=== PATIENT | female | born 1985 | race Caucasian/White ===

== ENCOUNTER 2017-12-25 14:58 | Inpatient (IN) | payer MEDICAID, OTHER ==
[~2017-12-25] VITALS: Ht 162.6 cm; Wt 49.7 kg
[~2017-12-25 14:58] MED LIST: ACYC-114; IRON15TA3 PO; LEVO500T47 PO; METO10TA82 PO; ONDA4TAB10 PO; ONDA4TAB7; PREN1TAB60 PO; PROM25AM6; PROM25SU35
[2017-12-25] MEDS ORDERED: ONDANSETRON 2MG/ML, 2ML IVPush ONE (15:30)
[2017-12-25] MEDS ORDERED: SODIUM CHLORIDE FLUSH 10ML SYR IVF ONE (15:30)
[2017-12-25] MEDS ORDERED: FAMOTIDINE 20 MG/2 ML IVP ONE (15:30)
[2017-12-25] MEDS ORDERED: SODIUM CHLORIDE 0.9% 1,000ML IVBOLUS ONE (15:30)
[2017-12-25] MEDS ORDERED: METOCLOPRAMIDE 5 MG/ML, 2ML IVPush ONE (15:30)
[2017-12-25 15:38] LABS: BASOPHILS # (AUTO) 0.01 x10^3/uL (0-0.1); BASOPHILS % (AUTO) 0 % (0-1); EOSINOPHILS # (AUTO) 0.03 x10^3/uL (0-0.4); EOSINOPHILS % (AUTO) 0 % (1-7); LYMPHOCYTES # (AUTO) 1.36 x10^3/uL (1-3.4); LYMPHOCYTES % (AUTO) 8 % (22-44); MD NO; MEAN CORPUSCULAR HEMOGLOBIN 31.9 pg (27.0-34.8); MEAN CORPUSCULAR VOLUME 93.6 fL (80-100); MEAN PLATELET VOLUME 8.2 fL (7.4-10.4); MONOCYTES # (AUTO) 0.54 x10^3/uL (0.2-0.8); MONOCYTES % (AUTO) 3 % (2-9); NEUTROPHILS % (AUTO) 89 % (42-75); PLATELET COUNT 414 x10^3/uL (130-400); RED BLOOD COUNT 4.23 x10^6/uL (3.82-5.3); RED CELL DISTRIBUTION WIDTH 13.2 % (9.6-15.2)
[2017-12-25 15:46] LABS: ALANINE AMINOTRANSFERASE 19 U/L (12-78); ALBUMIN 4.2 g/dL (3.4-5.0); ANION GAP 15 mmol/L (5-15); CALCIUM 9.1 mg/dL (8.5-10.1); CHLORIDE 104 mmol/L (98-107); CREATININE 0.85 mg/dL (0.55-1.02)
[2017-12-25 15:50] LABS: ALKALINE PHOSPHATASE 78 U/L (45-117); TOTAL PROTEIN 7.4 g/dL (6.4-8.2)
[2017-12-25] MEDS ORDERED: FAMOTIDINE 20 MG/2 ML ONE (16:03)
[2017-12-25] MEDS ORDERED: METOCLOPRAMIDE 5 MG/ML, 2ML ONE (16:03)
[2017-12-25] MEDS ORDERED: ONDANSETRON ODT 4 MG ONE (16:03)
[2017-12-25] MEDS ORDERED: POTASSIUM CHLORIDE 40 MEQ in SODIUM CHLORIDE 0.9% 1,000 ML IV ONE (16:23)
[2017-12-25] MEDS ORDERED: LORazepam 2 MG/ML, 1ML ONE (16:29)
[2017-12-25] MEDS ORDERED: LORazepam 2 MG/ML, 1ML IVPush ONE (16:30)
[2017-12-25] MEDS ORDERED: MAGNESIUM SULFATE IV ONE (16:30)
[2017-12-25] MEDS ORDERED: SODIUM CHLORIDE 0.9% IV ONE (16:30)
[2017-12-25] MEDS ORDERED: SODIUM CHLORIDE 0.9% 1,000 ML IV ONE (16:57)
[2017-12-25] MEDS ORDERED: SODIUM CHLORIDE FLUSH 10ML SYR IVF PRN (17:00)
[2017-12-25] MEDS ORDERED: MAGNESIUM SULFATE 1 GM in SODIUM CHLORIDE 0.9% 48 ML IV ONE (17:00)
[2017-12-25] MEDS ORDERED: SERT100T PO (17:08)
[2017-12-25] MEDS ORDERED: PROM12.55 PO (17:09)
[2017-12-25] MEDS ORDERED: NS + 40MEQ KCL 0 ML IV ONE (17:14)
[2017-12-25] MEDS ORDERED: BISACODYL 10 MG SUPP PR PRN (18:00)
[2017-12-25] MEDS ORDERED: hydrALAzine 20 MG/ML, 1ML IVPush PRN (18:00)
[2017-12-25] MEDS ORDERED: ACETAMINOPHEN 325 MG TABLET PO PRN (18:00)
[2017-12-25] MEDS ORDERED: POLYETHYLENE GLYCOL 17 GM PACKET PO PRN (18:00)
[2017-12-25] MEDS ORDERED: POTASSIUM CHLORIDE 40 MEQ in SODIUM CHLORIDE 0.9% 500 ML IV ONE (18:00)
[2017-12-25] MEDS ORDERED: ONDANSETRON 2MG/ML, 2ML IVPush PRN (18:00)
[2017-12-25] MEDS ORDERED: MAGNESIUM SULFATE 1 GM in SODIUM CHLORIDE 0.9% 50 ML IV ONE (18:30)
[2017-12-25] MEDS: HEPARIN 5,000 UNITS/ML, 1ML SQ SCH (18:41)
[2017-12-25 18:42] LABS: HEMOGLOBIN A1C 5.3 % (4.2-6.3)
[2017-12-25 18:51] LABS: FREE T4 (FREE THYROXINE) 1.78 ng/dL (0.76-1.46); THYROID STIMULATING HORMONE 1.09 mIU/L (0.358-3.740)
[2017-12-25] MEDS: ONDANSETRON ODT 4 MG PO PRN (19:39)
[2017-12-25] MEDS ORDERED: MORPHINE SULFATE 4 MG/ML, 1ML ONE ×2 (20:12→23:28)
[2017-12-25 20:21] VITALS: BP 97/55
[2017-12-25] MEDS: morphine SULFATE 10 MG/ML, 1ML IVPush PRN ×2 (20:21→23:34)
[2017-12-25] MEDS ORDERED: SODIUM PHOSPHATE 30 MMOL in SODIUM CHLORIDE 0.9% 500 ML IV ONE (20:30)
[2017-12-26 00:11] LABS: MICROSCOPIC NOT IND
[2017-12-26 00:16] LABS: CULTURE INDICATED? NO
[2017-12-26 04:00] VITALS: BP 90/50
[2017-12-26 04:21] VITALS: BP 90/50
[2017-12-26] MEDS ORDERED: MORPHINE SULFATE 4 MG/ML, 1ML ONE ×7 (04:25→23:57)
[2017-12-26] MEDS: ONDANSETRON ODT 4 MG PO PRN ×2 (04:28→10:07)
[2017-12-26] MEDS: HEPARIN 5,000 UNITS/ML, 1ML SQ SCH ×3 (04:28→19:57)
[2017-12-26] MEDS: morphine SULFATE 10 MG/ML, 1ML IVPush PRN ×6 (04:29→19:56)
[2017-12-26 05:19] LABS: ALANINE AMINOTRANSFERASE 15 U/L (12-78); ANION GAP 10 mmol/L (5-15); CALCIUM 7.8 mg/dL (8.5-10.1); CHLORIDE 109 mmol/L (98-107); CREATININE 0.55 mg/dL (0.55-1.02)
[2017-12-26 05:21] LABS: ALKALINE PHOSPHATASE 58 U/L (45-117); BILIRUBIN,TOTAL 0.7 mg/dL (0.2-1.0); CHOLESTEROL, TOTAL 81 mg/dL (140-239); HDL CHOL % 49 % (28-40); HDL CHOLESTEROL (DIRECT) 40 mg/dL (40-60); LDL CHOLESTEROL,CALCULATED 30 mg/dL (54-169); LDL/HDL RATIO 0.8 (0.5-3.0); TOTAL PROTEIN 5.4 g/dL (6.4-8.2); TRIGLYCERIDES 57 mg/dL (50-200); VLDL CHOLESTEROL 11 mg/dL (0-25)
[2017-12-26 05:24] LABS: BASOPHILS # (AUTO) 0.04 x10^3/uL (0-0.1); BASOPHILS % (AUTO) 0 % (0-1); EOSINOPHILS # (AUTO) 0.16 x10^3/uL (0-0.4); EOSINOPHILS % (AUTO) 2 % (1-7); LYMPHOCYTES # (AUTO) 3.93 x10^3/uL (1-3.4); LYMPHOCYTES % (AUTO) 48 % (22-44); MD NO; MEAN CORPUSCULAR HEMOGLOBIN 32.1 pg (27.0-34.8); MEAN CORPUSCULAR HGB CONC 34.1 g/dL (32.4-35.8); MEAN PLATELET VOLUME 7.9 fL (7.4-10.4); MONOCYTES # (AUTO) 0.51 x10^3/uL (0.2-0.8); MONOCYTES % (AUTO) 6 % (2-9); NEUTROPHILS # (AUTO) 3.54 x10^3/uL (1.8-6.8); NEUTROPHILS % (AUTO) 43 % (42-75); PLATELET COUNT 288 x10^3/uL (130-400); RED BLOOD COUNT 3.28 x10^6/uL (3.82-5.3); RED CELL DISTRIBUTION WIDTH 13.6 % (9.6-15.2)
[2017-12-26 06:58] VITALS: BP 97/53
[2017-12-26] MEDS: POTASSIUM CHLORIDE 40 MEQ in D5%-0.9% NACL 1,000 ML IV SCH ×2 (07:04→19:00)
[2017-12-26] MEDS: SERTRALINE 100MG TABLET PO SCH (09:48)
[2017-12-26] MEDS: SENNA/DOCUSATE TABLET PO SCH (09:48)
[2017-12-26] MEDS: PROMETHAZINE 25 MG/ML, 1ML IM PRN ×3 (12:36→19:57)
[2017-12-26 12:46] VITALS: BP 159/88
[2017-12-26 20:35] VITALS: BP 101/59
[2017-12-26 23:30] VITALS: BP 100/56
[2017-12-27] MEDS: morphine SULFATE 10 MG/ML, 1ML IVPush PRN ×6 (00:05→21:35)
[2017-12-27] MEDS: PROMETHAZINE 25 MG/ML, 1ML IM PRN ×3 (00:05→10:07)
[2017-12-27 00:35] VITALS: BP 107/63
[2017-12-27] MEDS ORDERED: D5%-0.45% NACL 1,000 ML IV SCH (01:00)
[2017-12-27 05:02] LABS: BASOPHILS # (AUTO) 0.04 x10^3/uL (0-0.1); BASOPHILS % (AUTO) 1 % (0-1); EOSINOPHILS # (AUTO) 0.15 x10^3/uL (0-0.4); EOSINOPHILS % (AUTO) 2 % (1-7); LYMPHOCYTES # (AUTO) 3.37 x10^3/uL (1-3.4); LYMPHOCYTES % (AUTO) 43 % (22-44); MD NO; MEAN CORPUSCULAR HEMOGLOBIN 32.4 pg (27.0-34.8); MEAN CORPUSCULAR HGB CONC 34.2 g/dL (32.4-35.8); MEAN CORPUSCULAR VOLUME 94.6 fL (80-100); MEAN PLATELET VOLUME 7.9 fL (7.4-10.4); MONOCYTES # (AUTO) 0.57 x10^3/uL (0.2-0.8); MONOCYTES % (AUTO) 7 % (2-9); NEUTROPHILS # (AUTO) 3.69 x10^3/uL (1.8-6.8); NEUTROPHILS % (AUTO) 47 % (42-75); PLATELET COUNT 325 x10^3/uL (130-400); RED BLOOD COUNT 3.58 x10^6/uL (3.82-5.3); RED CELL DISTRIBUTION WIDTH 13.4 % (9.6-15.2)
[2017-12-27 05:04] LABS: ANION GAP 8 mmol/L (5-15); CALCIUM 8.2 mg/dL (8.5-10.1); CHLORIDE 106 mmol/L (98-107); CREATININE 0.56 mg/dL (0.55-1.02)
[2017-12-27] MEDS ORDERED: MORPHINE SULFATE 4 MG/ML, 1ML ONE ×4 (05:39→21:32)
[2017-12-27] MEDS: HEPARIN 5,000 UNITS/ML, 1ML SQ SCH ×3 (05:49→20:43)
[2017-12-27 07:38] VITALS: BP 107/62
[2017-12-27] MEDS: SENNA/DOCUSATE TABLET PO SCH (09:00)
[2017-12-27] MEDS: SERTRALINE 100MG TABLET PO SCH (09:08)
[2017-12-27] MEDS ORDERED: POTASSIUM CHLORIDE 40 MEQ in SODIUM CHLORIDE 0.9% 500 ML IV ONE (10:00)
[2017-12-27] MEDS: ONDANSETRON ODT 4 MG PO PRN (10:39)
[2017-12-27] MEDS: PANTOPRAZOLE 40 MG IV IVPush SCH (11:48)
[2017-12-27 14:16] VITALS: BP 102/62
[2017-12-27] MEDS: POTASSIUM CHLORIDE 40 MEQ in D5%-0.9% NACL 1,000 ML IV SCH (15:11)
[2017-12-27 20:55] VITALS: BP 107/61
[2017-12-28] MEDS ORDERED: MORPHINE SULFATE 4 MG/ML, 1ML ONE ×4 (00:57→14:57)
[2017-12-28] MEDS: POTASSIUM CHLORIDE 40 MEQ in D5%-0.9% NACL 1,000 ML IV SCH ×2 (01:10→11:48)
[2017-12-28] MEDS: morphine SULFATE 10 MG/ML, 1ML IVPush PRN ×6 (01:10→19:42)
[2017-12-28 01:15] VITALS: BP 104/61
[2017-12-28] MEDS: HEPARIN 5,000 UNITS/ML, 1ML SQ SCH ×3 (04:13→19:43)
[2017-12-28] MEDS: SENNA/DOCUSATE TABLET PO SCH (07:39)
[2017-12-28 08:53] VITALS: BP 103/62
[2017-12-28] MEDS: ONDANSETRON ODT 4 MG PO PRN (08:53)
[2017-12-28] MEDS: SERTRALINE 100MG TABLET PO SCH (08:53)
[2017-12-28] MEDS: PANTOPRAZOLE 40 MG IV IVPush SCH (08:54)
[2017-12-28] MEDS: PROMETHAZINE 25 MG/ML, 1ML IM PRN ×2 (10:22→19:41)
[2017-12-28] MEDS ORDERED: POTASSIUM CHLORIDE 40 MEQ in SODIUM CHLORIDE 0.9% 500 ML IV ONE (12:30)
[2017-12-28 13:33] VITALS: BP 104/76
[2017-12-28 20:58] VITALS: BP 111/68
[2017-12-29] MEDS: morphine SULFATE 10 MG/ML, 1ML IVPush PRN ×4 (00:14→15:43)
[2017-12-29 02:58] VITALS: BP 95/54
[2017-12-29] MEDS: HEPARIN 5,000 UNITS/ML, 1ML SQ SCH ×4 (04:00→21:04)
[2017-12-29 06:06] LABS: ANION GAP 8 mmol/L (5-15); CHLORIDE 108 mmol/L (98-107); CREATININE 0.53 mg/dL (0.55-1.02)
[2017-12-29] MEDS: SENNA/DOCUSATE TABLET PO SCH (07:27)
[2017-12-29 08:07] VITALS: BP 102/66
[2017-12-29] MEDS ORDERED: MORPHINE SULFATE 4 MG/ML, 1ML ONE ×3 (09:43→15:41)
[2017-12-29] MEDS: PANTOPRAZOLE 40 MG IV IVPush SCH (09:55)
[2017-12-29] MEDS: SERTRALINE 100MG TABLET PO SCH (09:55)
[2017-12-29] MEDS: PROMETHAZINE 25 MG/ML, 1ML IM PRN (13:03)
[2017-12-29] MEDS ORDERED: QUETIAPINE 25MG TABLET ONE (13:53)
[2017-12-29] MEDS: QUETIAPINE 25MG TABLET PO PRN (13:57)
[2017-12-29 14:08] VITALS: BP 98/60
[2017-12-29 18:28] LABS: MICROSCOPIC NOT IND
[2017-12-29 18:35] LABS: CULTURE INDICATED? NO
[2017-12-29 20:25] VITALS: BP 100/63
[2017-12-29] MEDS ORDERED: QUETIAPINE 25MG TABLET PO SCH (21:00)
[2017-12-30 00:35] VITALS: BP 93/59
[2017-12-30] MEDS: HEPARIN 5,000 UNITS/ML, 1ML SQ SCH ×4 (04:00→20:00)
[2017-12-30] MEDS: PANTOPRAZOLE 40 MG IV IVPush SCH (08:08)
[2017-12-30] MEDS: SENNA/DOCUSATE TABLET PO SCH (08:09)
[2017-12-30] MEDS: SERTRALINE 100MG TABLET PO SCH (08:09)
[2017-12-30 08:29] VITALS: BP 95/57
[2017-12-30] MEDS: PROMETHAZINE 25 MG/ML, 1ML IM PRN ×3 (09:07→21:10)
[2017-12-30] MEDS: morphine SULFATE 10 MG/ML, 1ML IVPush PRN ×3 (11:02→23:08)
[2017-12-30] MEDS ORDERED: OMNIPAQUE 350 MG/ML, 100ML BOTTLE ONE (11:59)
[2017-12-30 15:55] VITALS: BP 95/62
[2017-12-30 19:35] VITALS: BP 118/73
[2017-12-30] MEDS: QUETIAPINE 100MG TABLET PO SCH (21:11)
[2017-12-30] MEDS ORDERED: MORPHINE SULFATE 4 MG/ML, 1ML ONE (23:02)
[2017-12-30] MEDS: METRONIDAZOLE PMX 500MG/100ML 100 ML IV SCH (23:16)
[2017-12-31] MEDS: CEFTRIAXONE PMX 2GM/50ML 50 ML IV SCH ×2 (00:33→23:08)
[2017-12-31 01:03] VITALS: BP 94/58
[2017-12-31] MEDS: HEPARIN 5,000 UNITS/ML, 1ML SQ SCH ×3 (02:32→21:35)
[2017-12-31 05:23] LABS: BASOPHILS # (AUTO) 0.03 x10^3/uL (0-0.1); BASOPHILS % (AUTO) 1 % (0-1); EOSINOPHILS # (AUTO) 0.19 x10^3/uL (0-0.4); EOSINOPHILS % (AUTO) 3 % (1-7); LYMPHOCYTES % (AUTO) 36 % (22-44); MD NO; MEAN CORPUSCULAR HEMOGLOBIN 32.2 pg (27.0-34.8); MEAN CORPUSCULAR HGB CONC 33.6 g/dL (32.4-35.8); MEAN CORPUSCULAR VOLUME 95.7 fL (80-100); MONOCYTES # (AUTO) 0.55 x10^3/uL (0.2-0.8); MONOCYTES % (AUTO) 9 % (2-9); NEUTROPHILS % (AUTO) 52 % (42-75); PLATELET COUNT 324 x10^3/uL (130-400); RED BLOOD COUNT 4.25 x10^6/uL (3.82-5.3); RED CELL DISTRIBUTION WIDTH 13.5 % (9.6-15.2)
[2017-12-31 05:32] LABS: ANION GAP 8 mmol/L (5-15); CALCIUM 8.4 mg/dL (8.5-10.1); CHLORIDE 106 mmol/L (98-107)
[2017-12-31 05:34] LABS: CREATININE 0.73 mg/dL (0.55-1.02)
[2017-12-31] MEDS: METRONIDAZOLE PMX 500MG/100ML 100 ML IV SCH ×3 (06:12→21:42)
[2017-12-31 06:56] VITALS: BP 96/60
[2017-12-31] MEDS: PROMETHAZINE 25 MG/ML, 1ML IM PRN ×4 (08:36→21:35)
[2017-12-31] MEDS: morphine SULFATE 10 MG/ML, 1ML IVPush PRN ×4 (08:45→21:34)
[2017-12-31] MEDS: SERTRALINE 100MG TABLET PO SCH (11:15)
[2017-12-31] MEDS: PANTOPROZOLE 40MG TABLET PO SCH (11:16)
[2017-12-31] MEDS: SENNA/DOCUSATE TABLET PO SCH (11:16)
[2017-12-31] MEDS: QUETIAPINE 25MG TABLET PO PRN (11:18)
[2017-12-31 14:01] VITALS: BP 131/86
[2017-12-31] MEDS ORDERED: POTASSIUM CHLORIDE 20 MEQ TAB.ER.PRT PO ONE (17:00)
[2017-12-31 20:07] VITALS: BP 95/65
[2017-12-31] MEDS: QUETIAPINE 100MG TABLET PO SCH (21:35)
[2018-01-01 02:54] VITALS: BP 93/60
[2018-01-01] MEDS: morphine SULFATE 10 MG/ML, 1ML IVPush PRN (04:49)
[2018-01-01] MEDS: HEPARIN 5,000 UNITS/ML, 1ML SQ SCH ×3 (04:49→21:06)
[2018-01-01 06:17] LABS: ALBUMIN 3.5 g/dL (3.4-5.0); ANION GAP 8 mmol/L (5-15); CALCIUM 8.5 mg/dL (8.5-10.1); CHLORIDE 109 mmol/L (98-107)
[2018-01-01 06:18] LABS: CREATININE 0.72 mg/dL (0.55-1.02)
[2018-01-01] MEDS ORDERED: POTASSIUM CHLORIDE 20 MEQ TAB.ER.PRT PO ONE (06:30)
[2018-01-01] MEDS: QUETIAPINE 25MG TABLET PO PRN (06:31)
[2018-01-01] MEDS: METRONIDAZOLE PMX 500MG/100ML 100 ML IV SCH ×3 (06:32→23:11)
[2018-01-01 08:15] VITALS: BP 98/64
[2018-01-01 08:29] LABS: ALANINE AMINOTRANSFERASE 29 U/L (12-78); ALBUMIN 3.6 g/dL (3.4-5.0); ALKALINE PHOSPHATASE 67 U/L (45-117); BILIRUBIN, DIRECT < 0.1 mg/dL (0.1-0.2); BILIRUBIN,INDIRECT 0.1 mg/dL (0.0-2.0); BILIRUBIN,TOTAL 0.2 mg/dL (0.2-1.0); TOTAL PROTEIN 6.6 g/dL (6.4-8.2)
[2018-01-01] MEDS: PANTOPROZOLE 40MG TABLET PO SCH (09:18)
[2018-01-01] MEDS: SENNA/DOCUSATE TABLET PO SCH (09:18)
[2018-01-01] MEDS: SERTRALINE 100MG TABLET PO SCH (09:18)
[2018-01-01] MEDS: MORPHINE SULFATE 4 MG/ML, 1ML IVPush PRN ×4 (09:18→23:11)
[2018-01-01] MEDS: PROMETHAZINE 25 MG/ML, 1ML IM PRN (09:18)
[2018-01-01 14:47] VITALS: BP 98/63
[2018-01-01] MEDS: ONDANSETRON ODT 4 MG PO PRN (14:56)
[2018-01-01 19:23] VITALS: BP 133/76
[2018-01-01] MEDS: QUETIAPINE 100MG TABLET PO SCH (21:06)
[2018-01-01] MEDS: CEFTRIAXONE PMX 2GM/50ML 50 ML IV SCH (22:28)
[2018-01-02 03:00] VITALS: BP 100/63
[2018-01-02] MEDS: MORPHINE SULFATE 4 MG/ML, 1ML IVPush PRN ×4 (03:31→23:32)
[2018-01-02] MEDS: HEPARIN 5,000 UNITS/ML, 1ML SQ SCH ×3 (03:32→20:23)
[2018-01-02 05:39] LABS: CHLORIDE 108 mmol/L (98-107)
[2018-01-02 05:49] LABS: ALANINE AMINOTRANSFERASE 28 U/L (12-78); ALBUMIN 3.2 g/dL (3.4-5.0); ALKALINE PHOSPHATASE 70 U/L (45-117); ANION GAP 8 mmol/L (5-15); BILIRUBIN,TOTAL 0.4 mg/dL (0.2-1.0); CALCIUM 8.3 mg/dL (8.5-10.1); TOTAL PROTEIN 6.6 g/dL (6.4-8.2)
[2018-01-02] MEDS: METRONIDAZOLE PMX 500MG/100ML 100 ML IV SCH ×3 (06:01→23:32)
[2018-01-02 07:29] VITALS: BP 84/56
[2018-01-02] MEDS ORDERED: POTASSIUM CHLORIDE 20 MEQ TAB.ER.PRT PO ONE (07:30)
[2018-01-02] MEDS: SERTRALINE 100MG TABLET PO SCH (07:56)
[2018-01-02] MEDS: PANTOPROZOLE 40MG TABLET PO SCH (07:56)
[2018-01-02] MEDS: SODIUM CHLORIDE 0.9% 1,000 ML IV SCH ×3 (07:57→23:37)
[2018-01-02] MEDS: SENNA/DOCUSATE TABLET PO SCH (07:57)
[2018-01-02] MEDS ORDERED: SODIUM CHLORIDE 0.9%, 500ML IVBOLUS ONE (08:00)
[2018-01-02] MEDS: PROMETHAZINE 25 MG/ML, 1ML IM PRN (08:13)
[2018-01-02] MEDS: QUETIAPINE 25MG TABLET PO PRN ×2 (08:15→14:52)
[2018-01-02 08:20] LABS: MICROSCOPIC NOT IND
[2018-01-02 08:21] LABS: CULTURE INDICATED? NO
[2018-01-02 10:04] VITALS: BP 107/71
[2018-01-02 12:11] VITALS: BP 98/63
[2018-01-02 15:42] VITALS: BP 137/85
[2018-01-02 19:58] VITALS: BP 114/66
[2018-01-02] MEDS: QUETIAPINE 100MG TABLET PO SCH (20:23)
[2018-01-02] MEDS: CEFTRIAXONE PMX 2GM/50ML 50 ML IV SCH (22:37)
[2018-01-03 02:38] VITALS: BP 98/57
[2018-01-03] MEDS: HEPARIN 5,000 UNITS/ML, 1ML SQ SCH ×2 (04:00→10:24)
[2018-01-03 05:33] LABS: BASOPHILS % (AUTO) 2 % (0-1); EOSINOPHILS # (AUTO) 0.24 x10^3/uL (0-0.4); EOSINOPHILS % (AUTO) 3 % (1-7); LYMPHOCYTES # (AUTO) 2.23 x10^3/uL (1-3.4); LYMPHOCYTES % (AUTO) 31 % (22-44); MD NO; MEAN CORPUSCULAR HEMOGLOBIN 31.7 pg (27.0-34.8); MEAN CORPUSCULAR HGB CONC 33.5 g/dL (32.4-35.8); MEAN CORPUSCULAR VOLUME 94.8 fL (80-100); MEAN PLATELET VOLUME 8.9 fL (7.4-10.4); MONOCYTES # (AUTO) 0.64 x10^3/uL (0.2-0.8); MONOCYTES % (AUTO) 9 % (2-9); NEUTROPHILS # (AUTO) 3.93 x10^3/uL (1.8-6.8); NEUTROPHILS % (AUTO) 55 % (42-75); PLATELET COUNT 256 x10^3/uL (130-400); RED BLOOD COUNT 3.88 x10^6/uL (3.82-5.3); RED CELL DISTRIBUTION WIDTH 13.9 % (9.6-15.2)
[2018-01-03 05:39] LABS: ALBUMIN 2.9 g/dL (3.4-5.0); ANION GAP 5 mmol/L (5-15); CALCIUM 8.6 mg/dL (8.5-10.1); CHLORIDE 111 mmol/L (98-107); CREATININE 0.78 mg/dL (0.55-1.02)
[2018-01-03 07:20] VITALS: BP 105/59
[2018-01-03] MEDS: METRONIDAZOLE PMX 500MG/100ML 100 ML IV SCH (07:37)
[2018-01-03] MEDS: PANTOPROZOLE 40MG TABLET PO SCH (07:37)
[2018-01-03] MEDS: SERTRALINE 100MG TABLET PO SCH (07:37)
[2018-01-03] MEDS: SENNA/DOCUSATE TABLET PO SCH (07:37)
[2018-01-03] MEDS: QUETIAPINE 25MG TABLET PO PRN (09:41)
[2018-01-03] MEDS: SODIUM CHLORIDE 0.9% 1,000 ML IV SCH (10:00)
[2018-01-03] MEDS: MORPHINE SULFATE 4 MG/ML, 1ML IVPush PRN (11:21)
[2018-01-03] MEDS ORDERED: PANT40TA5 PO (12:13)
[2018-01-03] MEDS ORDERED: QUET100T PO (12:13)
[2018-01-03] MEDS ORDERED: METR500T PO (12:13)
[2018-01-03] MEDS ORDERED: CEFD300C37 PO (12:13)
[2018-01-03] MEDS ORDERED: QUET25TA5 PO (14:19)
== END 2018-01-03 14:20 | disposition home or self-care (01) | DRG 392 ==
LOC: ED 16:55 → EDIP 16:57 → 4EST 17:46 → DCLOUNGE 01-03 13:45
PROVIDERS: ADMIT Internal Medicine; ATTEND Internal Medicine
DX: K52.9 Noninfective gastroenteritis and colitis, unspecified (principal); E87.2 Acidosis; E44.0 Moderate protein-calorie malnutrition; F22 Delusional disorders; Z68.1 Body mass index [BMI] 19.9 or less, adult; G43.A0 Cyclical vomiting, in migraine, not intractable; E86.0 Dehydration; E87.6 Hypokalemia; F12.20 Cannabis dependence, uncomplicated; F32.9 Major depressive disorder, single episode, unspecified; F41.9 Anxiety disorder, unspecified; M41.9 Scoliosis, unspecified; Z81.8 Family history of other mental and behavioral disorders; Z87.891 Personal history of nicotine dependence; Z90.49 Acquired absence of other specified parts of digestive tract; Z91.5 Personal history of self-harm
CPT/HCPCS: 36415; 74021; 74177; 80048; 80053; 80061; 80076; 81003; 82040; 83036; 83690; 83735; 84100; 84439; 84443; 84703; 85025; 96361; 96374; 96375; J0696; J1644; J2405; J2550; J3475; J3480; J7042; Q0162; Q9967; C9113; J2060; J2270; J2765; J7030; J7040; S0028

== ENCOUNTER 2018-04-08 08:20 | Emergency (ER) | payer MEDICAID ==
[~2018-04-08] VITALS: Ht 162.6 cm; Wt 54.5 kg
[~2018-04-08 08:20] MED LIST changes: +CEFD300C37 PO; +METR500T PO; +PANT40TA5 PO; +PROM12.55 PO; +QUET100T PO; +QUET25TA5 PO; +SERT100T PO
[2018-04-08] MEDS ORDERED: PROMETHAZINE 25 MG/ML, 1ML IM ONE (09:00)
[2018-04-08] MEDS ORDERED: PROMETHAZINE 25 MG/ML, 1ML ONE (09:04)
[2018-04-08] MEDS ORDERED: KETOROLAC 30 MG/1 ML IM ONE (10:00)
[2018-04-08 10:19] LABS: ALANINE AMINOTRANSFERASE 23 U/L (12-78); ALBUMIN 4.8 g/dL (3.4-5.0); ANION GAP 13 mmol/L (5-15); CALCIUM 9.4 mg/dL (8.5-10.1); CHLORIDE 107 mmol/L (98-107); CREATININE 0.95 mg/dL (0.55-1.02)
[2018-04-08 10:21] LABS: ALKALINE PHOSPHATASE 94 U/L (45-117); BILIRUBIN,TOTAL 0.5 mg/dL (0.2-1.0); TOTAL PROTEIN 8.5 g/dL (6.4-8.2)
[2018-04-08 10:23] LABS: BASOPHILS # (AUTO) 0.05 x10^3/uL (0-0.1); BASOPHILS % (AUTO) 0 % (0-1); EOSINOPHILS % (AUTO) 0 % (1-7); LYMPHOCYTES # (AUTO) 1.72 x10^3/uL (1-3.4); LYMPHOCYTES % (AUTO) 10 % (22-44); MD NO; MEAN CORPUSCULAR HEMOGLOBIN 32.4 pg (27.0-34.8); MEAN CORPUSCULAR HGB CONC 34.6 g/dL (32.4-35.8); MEAN CORPUSCULAR VOLUME 93.6 fL (80-100); MEAN PLATELET VOLUME 7.8 fL (7.4-10.4); MONOCYTES # (AUTO) 0.59 x10^3/uL (0.2-0.8); MONOCYTES % (AUTO) 3 % (2-9); NEUTROPHILS % (AUTO) 87 % (42-75); PLATELET COUNT 470 x10^3/uL (130-400); RED BLOOD COUNT 4.55 x10^6/uL (3.82-5.3); RED CELL DISTRIBUTION WIDTH 12.8 % (9.6-15.2)
[2018-04-08] MEDS ORDERED: KETOROLAC 30 MG/1 ML ONE (10:57)
[2018-04-08] MEDS ORDERED: KETOROLAC 30 MG/1 ML IVPush ONE (11:30)
[2018-04-08 12:03] LABS: HCG UR SG 1.023 (1.003-1.030)
[2018-04-08 12:22] LABS: CULTURE INDICATED? YES; MICROSCOPIC INDICATED
[2018-04-08] MEDS ORDERED: SODIUM CHLORIDE 0.9% 1,000ML IVBOLUS ONE (13:00)
[2018-04-08 14:49] VITALS: BP 124/72
== END 2018-04-08 14:51 | disposition home or self-care (01) ==
LOC: ED 13:38
DX: F41.1 Generalized anxiety disorder (principal); R11.2 Nausea with vomiting, unspecified; Z90.89 Acquired absence of other organs; Z90.49 Acquired absence of other specified parts of digestive tract
CPT/HCPCS: 36415; 80053; 81001; 81025; 85025; 87086; 96360; 96361; 96372; 99285; J1885; J2550; J7030

== ENCOUNTER 2018-07-20 19:34 | Emergency (ER) | payer MEDICAID ==
[~2018-07-20] VITALS: Ht 167.6 cm; Wt 60.0 kg
[2018-07-20] MEDS ORDERED: SODIUM CHLORIDE 0.9% 1,000 ML IV ONE (19:52)
[2018-07-20] MEDS ORDERED: PROMETHAZINE 25 MG/ML, 1ML ONE (19:52)
[2018-07-20] MEDS ORDERED: SODIUM CHLORIDE 0.9% 1,000ML IVBOLUS ONE (20:00)
[2018-07-20] MEDS ORDERED: PROMETHAZINE 25 MG/ML, 1ML IM ONE (20:00)
[2018-07-20] MEDS ORDERED: SODIUM CHLORIDE FLUSH 10ML SYR IVF ONE (20:00)
[2018-07-20] MEDS ORDERED: DIPHENHYDRAMINE 50 MG/ML, 1ML IVPush ONE (20:00)
[2018-07-20] MEDS ORDERED: HYDROmorphone 2 MG/ML, 1ML ONE ×2 (20:12→21:11)
[2018-07-20] MEDS ORDERED: DIPHENHYDRAMINE 50 MG/ML, 1ML ONE (20:12)
[2018-07-20] MEDS: HYDROmorphone 2 MG/ML, 1ML IVPush PRN ×2 (20:15→21:15)
[2018-07-20 20:21] LABS: BASOPHILS # (AUTO) 0.04 x10^3/uL (0-0.1); BASOPHILS % (AUTO) 0 % (0-1); EOSINOPHILS # (AUTO) 0.03 x10^3/uL (0-0.4); EOSINOPHILS % (AUTO) 0 % (1-7); LYMPHOCYTES # (AUTO) 1.84 x10^3/uL (1-3.4); LYMPHOCYTES % (AUTO) 11 % (22-44); MD NO; MEAN CORPUSCULAR HEMOGLOBIN 32.3 pg (27.0-34.8); MEAN CORPUSCULAR HGB CONC 34.4 g/dL (32.4-35.8); MEAN PLATELET VOLUME 8.3 fL (7.4-10.4); MONOCYTES # (AUTO) 0.69 x10^3/uL (0.2-0.8); MONOCYTES % (AUTO) 4 % (2-9); NEUTROPHILS # (AUTO) 13.96 x10^3/uL (1.8-6.8); NEUTROPHILS % (AUTO) 84 % (42-75); PLATELET COUNT 411 x10^3/uL (130-400); RED BLOOD COUNT 4.91 x10^6/uL (3.82-5.3); RED CELL DISTRIBUTION WIDTH 12.6 % (9.6-15.2)
[2018-07-20 20:30] LABS: ALBUMIN 4.8 g/dL (3.4-5.0); ANION GAP 14 mmol/L (5-15); CALCIUM 9.5 mg/dL (8.5-10.1); CHLORIDE 102 mmol/L (98-107)
[2018-07-20 20:35] LABS: ALANINE AMINOTRANSFERASE 27 U/L (12-78); ALKALINE PHOSPHATASE 101 U/L (45-117); BILIRUBIN,TOTAL 0.7 mg/dL (0.2-1.0); CREATININE 1.01 mg/dL (0.55-1.02); TOTAL PROTEIN 8.7 g/dL (6.4-8.2)
[2018-07-20] MEDS ORDERED: PLEASE ENTER HEIGHT AND WEIGHT MC SCH (21:00)
[2018-07-20 21:43] LABS: MICROSCOPIC INDICATED
[2018-07-20 22:00] LABS: CULTURE INDICATED? NO
[2018-07-20 22:31] VITALS: BP 97/62
== END 2018-07-20 23:40 | disposition home or self-care (01) ==
LOC: ED 21:03
DX: E86.0 Dehydration (principal); E86.9 Volume depletion, unspecified; J01.30 Acute sphenoidal sinusitis, unspecified; G43.001 Migraine without aura, not intractable, with status migrainosus; F17.200 Nicotine dependence, unspecified, uncomplicated; F32.9 Major depressive disorder, single episode, unspecified; Z90.49 Acquired absence of other specified parts of digestive tract
CPT/HCPCS: 36415; 70450; 80053; 81001; 83690; 84703; 85025; 96361; 96372; 96374; 96375; 96376; 99284; J1170; J1200; J2550; J7030

== ENCOUNTER 2018-08-13 08:07 | Inpatient (IN) | payer MEDICAID ==
[~2018-08-13] VITALS: Ht 162.6 cm; Wt 56.8 kg
[2018-08-13] MEDS ORDERED: SODIUM CHLORIDE 0.9% 1,000 ML IV ONE ×2 (08:14→10:53)
--- NOTE | 2018-08-13 08:19 | NUR ---
Pt BIB EMS from home for vomiting and abd pain. 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 Pt hyperventilating with carpal pedal spasms. Pt vomiting clear yellow liquid.
[2018-08-13] MEDS ORDERED: ZIPRASIDONE 20 MG INJ IM ONE ×2 (08:30→08:49)
[2018-08-13] MEDS ORDERED: SODIUM CHLORIDE 0.9% 1,000ML IVBOLUS ONE (08:30)
[2018-08-13] MEDS ORDERED: SODIUM CHLORIDE FLUSH 10ML SYR IVF ONE (08:30)
[2018-08-13 09:07] LABS: ALBUMIN 4.7 g/dL (3.4-5.0); ANION GAP 13 mmol/L (5-15); CALCIUM 9.4 mg/dL (8.5-10.1); CHLORIDE 111 mmol/L (98-107)
[2018-08-13 09:10] LABS: MEAN CORPUSCULAR HEMOGLOBIN 31.4 pg (27.0-34.8); MEAN CORPUSCULAR HGB CONC 33.6 g/dL (32.4-35.8); MEAN CORPUSCULAR VOLUME 93.6 fL (80-100); MEAN PLATELET VOLUME 8.2 fL (7.4-10.4); PLATELET COUNT 460 x10^3/uL (130-400); RED BLOOD COUNT 4.65 x10^6/uL (3.82-5.3); RED CELL DISTRIBUTION WIDTH 12.7 % (9.6-15.2)
[2018-08-13 09:11] LABS: ALANINE AMINOTRANSFERASE 33 U/L (12-78); ALKALINE PHOSPHATASE 91 U/L (45-117); CREATININE 0.92 mg/dL (0.55-1.02); TOTAL PROTEIN 8.2 g/dL (6.4-8.2)
[2018-08-13 09:38] LABS: BASOPHILS % (AUTO) 1 % (0-1); EOSINOPHILS % (AUTO) 1 % (1-7); LYMPHOCYTES # (AUTO) 2.27 x10^3/uL (1-3.4); LYMPHOCYTES % (AUTO) 12 % (22-44); MD SCAN; MONOCYTES # (AUTO) 0.63 x10^3/uL (0.2-0.8); MONOCYTES % (AUTO) 3 % (2-9); NEUTROPHILS # (AUTO) 15.33 x10^3/uL (1.8-6.8); NEUTROPHILS % (AUTO) 83 % (42-75)
--- NOTE | 2018-08-13 10:12 | NUR ---
Pt remains nauseated. Pt earlier was rinking water and sticking her hand down her throat to make herself vomit. Pt states vomiting makes her feel better.
[2018-08-13] MEDS ORDERED: ONDANSETRON 2MG/ML, 2ML IVPush ONE (10:30)
[2018-08-13] MEDS ORDERED: PROMETHAZINE 25 MG/ML, 1ML IM ONE (10:30)
[2018-08-13] MEDS ORDERED: PROMETHAZINE 25 MG/ML, 1ML ONE (10:37)
[2018-08-13] MEDS ORDERED: ONDANSETRON 2MG/ML, 2ML ONE (10:37)
[2018-08-13] MEDS ORDERED: SODIUM CHLORIDE FLUSH 10ML SYR IVF PRN (11:00)
--- NOTE | 2018-08-13 11:05 | NUR ---
Throughput RN note: Pt has [employer] insurance. Spoke with Shazia at [facility], they will not accept transfer of pt to [facility]. Spoke with Chantel at [facility], they will not accept transfer of pt to [facility].
[2018-08-13] MEDS ORDERED: hydrALAzine 20 MG/ML, 1ML IVPush PRN (11:30)
[2018-08-13] MEDS: ENOXAPARIN 40 MG/0.4 ML SQ SCH (11:30)
[2018-08-13] MEDS ORDERED: ACETAMINOPHEN 325 MG TABLET PO PRN (11:30)
[2018-08-13] MEDS: NICOTINE 7 MG/24 HR PATCH.TD24 TD SCH (11:30)
[2018-08-13] MEDS ORDERED: SODIUM CHLORIDE 0.9% 500 ML IV SCH (11:30)
[2018-08-13] MEDS: SODIUM CHLORIDE 0.9% 1,000 ML IV SCH ×2 (13:09→20:00)
[2018-08-13] MEDS: PROMETHAZINE 25 MG/ML, 1ML IM PRN ×2 (13:33→21:39)
[2018-08-13] MEDS: HYDROcodone/APAP 5/325 TABLET PO PRN ×2 (13:34→21:40)
[2018-08-13] MEDS: ONDANSETRON 2MG/ML, 2ML IVPush PRN (13:45)
[2018-08-13 14:10] VITALS: BP 147/85
[2018-08-13 14:17] VITALS: BP 147/85
[2018-08-13] MEDS ORDERED: OMNIPAQUE 350 MG/ML, 100ML BOTTLE ONE (14:45)
[2018-08-13 18:45] VITALS: BP 105/65
[2018-08-13] MEDS: QUETIAPINE 100MG TABLET PO SCH ×2 (20:37→21:40)
[2018-08-14] MEDS: SODIUM CHLORIDE 0.9% 1,000 ML IV SCH (02:40)
[2018-08-14] MEDS: HYDROcodone/APAP 5/325 TABLET PO PRN ×5 (02:49→17:52)
[2018-08-14] MEDS: ONDANSETRON 2MG/ML, 2ML IVPush PRN ×2 (02:49→13:36)
[2018-08-14 02:50] VITALS: BP 104/55
[2018-08-14 03:00] LABS: CULTURE INDICATED? NO; HCG UR SG 1.015 (1.003-1.030); MICROSCOPIC NOT IND
[2018-08-14 03:10] LABS: AMPHETAMINE SCREEN, URINE Negative (Negative); BARBITURATE SCREEN, URINE Negative (Negative); BENZODIAZEPINE SCREEN, URINE Negative (Negative); CANNABINOID SCREEN, URINE Positive (Negative); COCAINE SCREEN, URINE Negative (Negative); METHADONE SCREEN, URINE Negative (Negative); OPIATE SCREEN, URINE Positive (Negative)
[2018-08-14 06:03] LABS: BASOPHILS # (AUTO) 0.02 x10^3/uL (0-0.1); BASOPHILS % (AUTO) 0 % (0-1); EOSINOPHILS % (AUTO) 1 % (1-7); LYMPHOCYTES # (AUTO) 3.07 x10^3/uL (1-3.4); LYMPHOCYTES % (AUTO) 29 % (22-44); MD NO; MEAN CORPUSCULAR HEMOGLOBIN 32.1 pg (27.0-34.8); MEAN CORPUSCULAR HGB CONC 34.3 g/dL (32.4-35.8); MEAN CORPUSCULAR VOLUME 93.4 fL (80-100); MEAN PLATELET VOLUME 7.8 fL (7.4-10.4); MONOCYTES % (AUTO) 7 % (2-9); NEUTROPHILS % (AUTO) 63 % (42-75); PLATELET COUNT 330 x10^3/uL (130-400); RED BLOOD COUNT 3.78 x10^6/uL (3.82-5.3); RED CELL DISTRIBUTION WIDTH 12.7 % (9.6-15.2)
[2018-08-14 06:13] LABS: CHLORIDE 106 mmol/L (98-107)
[2018-08-14 06:46] LABS: ALANINE AMINOTRANSFERASE 23 U/L (12-78); ALBUMIN 3.4 g/dL (3.4-5.0); ALKALINE PHOSPHATASE 68 U/L (45-117); BILIRUBIN,TOTAL 0.9 mg/dL (0.2-1.0); CALCIUM 7.8 mg/dL (8.5-10.1); CREATININE 0.63 mg/dL (0.55-1.02); TOTAL PROTEIN 6.2 g/dL (6.4-8.2)
[2018-08-14 07:02] LABS: ANION GAP 11 mmol/L (5-15)
[2018-08-14 07:08] VITALS: BP 92/52
[2018-08-14] MEDS: SERTRALINE 100MG TABLET PO SCH (08:42)
[2018-08-14] MEDS ORDERED: LORazepam 2 MG/ML, 1ML ONE (09:36)
[2018-08-14] MEDS: ONDANSETRON ODT 4 MG PO PRN (09:40)
[2018-08-14] MEDS: LORazepam 2 MG/ML, 1ML IVPush PRN ×3 (09:40→21:57)
[2018-08-14] MEDS ORDERED: POTASSIUM CHLORIDE 40 MEQ in SODIUM CHLORIDE 0.9% 500 ML IV ONE (11:00)
[2018-08-14] MEDS ORDERED: MAGNESIUM SULFATE PMX 2GM/50ML 50 ML IV ONE (11:00)
[2018-08-14] MEDS ORDERED: POTASSIUM CHLORIDE 40 MEQ in SODIUM CHLORIDE 0.45% 1,000 ML IV SCH (11:00)
[2018-08-14] MEDS: ENOXAPARIN 40 MG/0.4 ML SQ SCH (11:30)
[2018-08-14] MEDS: NICOTINE 7 MG/24 HR PATCH.TD24 TD SCH (11:30)
[2018-08-14 12:42] VITALS: BP 113/65
[2018-08-14] MEDS: PROMETHAZINE 25 MG/ML, 1ML IM PRN (16:24)
[2018-08-14] MEDS: morphine SULFATE 10 MG/ML, 1ML IVPush PRN ×2 (16:25→20:09)
[2018-08-14 18:54] VITALS: BP 99/55
[2018-08-15] MEDS: HYDROcodone/APAP 5/325 TABLET PO PRN ×4 (00:17→20:26)
[2018-08-15 00:47] VITALS: BP 100/52
[2018-08-15] MEDS: morphine SULFATE 10 MG/ML, 1ML IVPush PRN ×4 (01:36→21:39)
[2018-08-15 05:09] LABS: BASOPHILS # (AUTO) 0.03 x10^3/uL (0-0.1); BASOPHILS % (AUTO) 1 % (0-1); EOSINOPHILS # (AUTO) 0.13 x10^3/uL (0-0.4); EOSINOPHILS % (AUTO) 2 % (1-7); LYMPHOCYTES # (AUTO) 3.13 x10^3/uL (1-3.4); LYMPHOCYTES % (AUTO) 50 % (22-44); MD NO; MEAN CORPUSCULAR HEMOGLOBIN 32.9 pg (27.0-34.8); MEAN CORPUSCULAR VOLUME 93.9 fL (80-100); MEAN PLATELET VOLUME 7.7 fL (7.4-10.4); MONOCYTES # (AUTO) 0.52 x10^3/uL (0.2-0.8); MONOCYTES % (AUTO) 8 % (2-9); NEUTROPHILS % (AUTO) 39 % (42-75); PLATELET COUNT 307 x10^3/uL (130-400); RED BLOOD COUNT 3.37 x10^6/uL (3.82-5.3); RED CELL DISTRIBUTION WIDTH 13.3 % (9.6-15.2)
[2018-08-15 05:20] LABS: ALBUMIN 3.2 g/dL (3.4-5.0); ANION GAP 5 mmol/L (5-15); CALCIUM 7.7 mg/dL (8.5-10.1); CHLORIDE 113 mmol/L (98-107)
[2018-08-15 05:25] LABS: ALANINE AMINOTRANSFERASE 26 U/L (12-78); ALKALINE PHOSPHATASE 58 U/L (45-117); CREATININE 0.61 mg/dL (0.55-1.02); TOTAL PROTEIN 5.6 g/dL (6.4-8.2)
[2018-08-15] MEDS: SERTRALINE 100MG TABLET PO SCH (08:48)
[2018-08-15 08:49] VITALS: BP 111/68
[2018-08-15] MEDS: LORazepam 2 MG/ML, 1ML IVPush PRN (10:29)
[2018-08-15] MEDS: NICOTINE 7 MG/24 HR PATCH.TD24 TD SCH (11:30)
[2018-08-15] MEDS: ENOXAPARIN 40 MG/0.4 ML SQ SCH (11:30)
[2018-08-15] MEDS: POTASSIUM CHLORIDE 40 MEQ in SODIUM CHLORIDE 0.45% 1,000 ML IV SCH ×2 (12:11→21:32)
[2018-08-15 13:38] VITALS: BP 119/78
[2018-08-15] MEDS: ONDANSETRON 2MG/ML, 2ML IVPush PRN ×2 (16:10→21:32)
[2018-08-15] MEDS: ONDANSETRON ODT 4 MG PO PRN (18:08)
[2018-08-15 19:39] VITALS: BP 115/70
[2018-08-15] MEDS: QUETIAPINE 100MG TABLET PO SCH (21:40)
[2018-08-16 01:00] VITALS: BP 92/46
[2018-08-16] MEDS: morphine SULFATE 10 MG/ML, 1ML IVPush PRN ×2 (01:11→09:54)
[2018-08-16] MEDS: HYDROcodone/APAP 5/325 TABLET PO PRN ×2 (04:24→14:29)
[2018-08-16] MEDS: ONDANSETRON 2MG/ML, 2ML IVPush PRN (04:24)
[2018-08-16 04:55] LABS: ALANINE AMINOTRANSFERASE 25 U/L (12-78); ALBUMIN 3.4 g/dL (3.4-5.0); ANION GAP 4 mmol/L (5-15); CALCIUM 8.3 mg/dL (8.5-10.1); CHLORIDE 112 mmol/L (98-107)
[2018-08-16 04:57] LABS: ALKALINE PHOSPHATASE 61 U/L (45-117); BILIRUBIN,TOTAL 0.6 mg/dL (0.2-1.0); CREATININE 0.64 mg/dL (0.55-1.02); TOTAL PROTEIN 6.1 g/dL (6.4-8.2)
[2018-08-16 06:56] VITALS: BP 96/57
[2018-08-16] MEDS: SERTRALINE 100MG TABLET PO SCH (08:40)
[2018-08-16] MEDS: NICOTINE 7 MG/24 HR PATCH.TD24 TD SCH (11:14)
[2018-08-16] MEDS: ENOXAPARIN 40 MG/0.4 ML SQ SCH (11:14)
[2018-08-16] MEDS: LORazepam 2 MG/ML, 1ML IVPush PRN (11:25)
[2018-08-16] MEDS ORDERED: BUTALB/APAP/CAFFEINE 50MG/325MG/40MG PO PRN (11:30)
[2018-08-16] MEDS: POTASSIUM CHLORIDE 40 MEQ in SODIUM CHLORIDE 0.45% 1,000 ML IV SCH (11:57)
[2018-08-16 12:55] VITALS: BP 99/68
[2018-08-16] MEDS ORDERED: CLON0.5T11 PO ×2 (12:57)
[2018-08-16] MEDS ORDERED: ACET325T14 PO (12:57)
[2018-08-16] MEDS ORDERED: OLAN2.5T10 PO (12:57)
[2018-08-16] MEDS ORDERED: FLUO20CA8 PO (12:57)
[2018-08-16] MEDS ORDERED: ONDA4TAB13 PO (12:57)
[2018-08-16] MEDS: ONDANSETRON ODT 4 MG PO PRN (14:28)
[2018-08-16] MEDS ORDERED: FLUOXETINE HCL 20 MG CAPSULE PO SCH (21:00)
[2018-08-16] MEDS ORDERED: OLANZAPINE 2.5 MG TABLET PO SCH (21:00)
== END 2018-08-16 15:57 | disposition home or self-care (01) | DRG 103 ==
LOC: ED 08:20 → 3NW 10:53 → DCLOUNGE 08-16 15:40
PROVIDERS: ADMIT Hospitalist; ATTEND Hospitalist
DX: G43.A1 Cyclical vomiting, in migraine, intractable (principal); E87.2 Acidosis; D72.829 Elevated white blood cell count, unspecified; E83.42 Hypomagnesemia; E86.0 Dehydration; E87.6 Hypokalemia; F12.90 Cannabis use, unspecified, uncomplicated; F17.210 Nicotine dependence, cigarettes, uncomplicated; F41.0 Panic disorder [episodic paroxysmal anxiety]; F41.1 Generalized anxiety disorder; F19.10 Other psychoactive substance abuse, uncomplicated; R73.9 Hyperglycemia, unspecified; Z90.49 Acquired absence of other specified parts of digestive tract; Z71.6 Tobacco abuse counseling
CPT/HCPCS: 36415; 70450; 71045; 74177; 80053; 80307; 81003; 81025; 83690; 83735; 84703; 85025; 87338; 89055; 99285; G0378; J2405; J2550; J3480; J3486; Q0162; Q9967; J2060; J2270; J3475; J7030; J7040

== ENCOUNTER 2018-09-13 16:26 | Emergency (ER) | payer MEDICAID ==
[~2018-09-13] VITALS: Ht 162.6 cm; Wt 60.0 kg
[~2018-09-13 16:26] MED LIST changes: +ACET325T14 PO; +CLON0.5T11 PO; +FLUO20CA8 PO; +OLAN2.5T10 PO; +ONDA4TAB13 PO
[2018-09-13 16:40] VITALS: BP 103/68
[2018-09-13] MEDS ORDERED: DIPHENHYDRAMINE 25 MG CAPSULE ONE (17:25)
[2018-09-13] MEDS ORDERED: ONDANSETRON ODT 4 MG ONE (17:25)
[2018-09-13] MEDS ORDERED: KETOROLAC 30 MG/1 ML ONE (17:25)
[2018-09-13] MEDS ORDERED: METHOCARBAMOL 750 MG TABLET ONE (17:28)
[2018-09-13] MEDS ORDERED: METHOCARBAMOL 750 MG TABLET PO ONE (17:30)
[2018-09-13] MEDS ORDERED: KETOROLAC 30 MG/1 ML IM ONE (17:30)
[2018-09-13] MEDS ORDERED: ONDANSETRON ODT 4 MG PO ONE (17:30)
[2018-09-13] MEDS ORDERED: DIPHENHYDRAMINE 25 MG CAPSULE PO ONE (17:30)
[2018-09-13] MEDS ORDERED: DEXAMETHASONE 4 MG TABLET PO ONE (18:30)
[2018-09-13] MEDS ORDERED: DEXAMETHASONE 4 MG TABLET ONE (18:34)
== END 2018-09-13 19:05 | disposition home or self-care (01) ==
LOC: ED 18:15
DX: J02.0 Streptococcal pharyngitis (principal); R51 Headache; I10 Essential (primary) hypertension; Z90.49 Acquired absence of other specified parts of digestive tract; F17.200 Nicotine dependence, unspecified, uncomplicated
CPT/HCPCS: 87880; 96372; 99284; J1885; Q0162; Q0163

== ENCOUNTER 2018-09-30 07:29 | Observation (INO) | payer MEDICAID ==
[~2018-09-30] VITALS: Ht 162.6 cm; Wt 55.3 kg
--- NOTE | 2018-09-30 07:33 | NUR ---
33 Y/O FEMALE BIB AMBULANCE FROM HOME WITH C/O N/V AND FLU LIKE SX FOR 2 DAYS. 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 PT ALSO C/O "I'VE ALSO BEEN HOT AND COLD WITH COUGH AND CONGESTION. 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 PT GIVEN 50 FENTANYL AND 4 ZOFRAN VOCATIONAL EVALUATOR. 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
[2018-09-30] MEDS ORDERED: PROMETHAZINE 25 MG/ML, 1ML ONE ×2 (07:51→11:33)
--- NOTE | 2018-09-30 07:54 | NUR ---
pt to imaging
[2018-09-30] MEDS ORDERED: PROMETHAZINE 25 MG/ML, 1ML IM ONE (08:00)
--- NOTE | 2018-09-30 08:04 | NUR ---
PT BACK FROM IMAGING. LAB BEDSIDE. PT RESTING ON GURNEY. PT HAS EMESID BAG. WILL CONTINUE TO MONITOR. MEDICATION ADMINISTERED PER EMAR.
[2018-09-30 08:16] LABS: BASOPHILS # (AUTO) 0.03 x10^3/uL (0-0.1); BASOPHILS % (AUTO) 0 % (0-1); EOSINOPHILS # (AUTO) 0.01 x10^3/uL (0-0.4); EOSINOPHILS % (AUTO) 0 % (1-7); LYMPHOCYTES # (AUTO) 1.85 x10^3/uL (1-3.4); LYMPHOCYTES % (AUTO) 14 % (22-44); MD NO; MEAN CORPUSCULAR HEMOGLOBIN 31.1 pg (27.0-34.8); MEAN CORPUSCULAR HGB CONC 34.3 g/dL (32.4-35.8); MEAN CORPUSCULAR VOLUME 90.7 fL (80-100); MEAN PLATELET VOLUME 7.7 fL (7.4-10.4); MONOCYTES # (AUTO) 0.62 x10^3/uL (0.2-0.8); MONOCYTES % (AUTO) 5 % (2-9); NEUTROPHILS # (AUTO) 10.86 x10^3/uL (1.8-6.8); NEUTROPHILS % (AUTO) 81 % (42-75); PLATELET COUNT 501 x10^3/uL (130-400); RED BLOOD COUNT 4.98 x10^6/uL (3.82-5.3); RED CELL DISTRIBUTION WIDTH 13.4 % (9.6-15.2)
[2018-09-30 08:16] LABS: RAPID INFLUENZA A Negative (Negative); RAPID INFLUENZA B Negative (Negative)
[2018-09-30 08:28] LABS: ALBUMIN 4.7 g/dL (3.4-5.0); ANION GAP 15 mmol/L (5-15); CALCIUM 9.4 mg/dL (8.5-10.1); CHLORIDE 93 mmol/L (98-107); CREATININE 0.86 mg/dL (0.55-1.02)
--- NOTE | 2018-09-30 08:37 | NUR ---
pt sleeping on gurney. no acute distress noted. pt put side rail down on her own. no acute distress noted. will continue to monitor.
--- NOTE | 2018-09-30 09:14 | NUR ---
PT CONTINUES TO SLEEP ON GURNEY. RESPS EQUAL AND UNLABORED. NO ACUTE DISTRESS NOTED. WILL CONTINUE TO MONITOR.
--- NOTE | 2018-09-30 09:57 | NUR ---
PT RESTING ON MARÍA. PT STATES "I HAVE NEW MEDICATIONS, BUT I DON'T REMEMBER THE NAME OF THEM." NO ACUTE DISTRESS NOTED. WARM BLANKET PROVIDED.
[2018-09-30] MEDS ORDERED: SODIUM CHLORIDE 0.9% 1,000 ML IV ONE (10:00)
[2018-09-30] MEDS ORDERED: PANTOPRAZOLE 40 MG IV IVPush ONE (10:00)
--- NOTE | 2018-09-30 10:06 | NUR ---
BEDSIDE REPORT TO [facility]
--- NOTE | 2018-09-30 10:08 | NUR ---
BS REPORT FROM JULIO GO, ASSUME CARE OF PT AT THIS TIME. PT TO BE ADMITTED, AWAITING FURTHER ORDERS AND MEDS FROM PHARMACY.
[2018-09-30] MEDS ORDERED: PANTOPRAZOLE 40 MG IV ONE (10:14)
[2018-09-30] MEDS ORDERED: POTASSIUM CHLORIDE 40 MEQ in SODIUM CHLORIDE 0.9% 500 ML IV ONE (11:00)
--- NOTE | 2018-09-30 11:04 | NUR ---
[facility] IN TO SEE PT.
[2018-09-30] MEDS ORDERED: NS + 20MEQ KCL 1,000 ML IV SCH (11:12)
[2018-09-30] MEDS ORDERED: ONDANSETRON ODT 4 MG ONE (11:22)
[2018-09-30] MEDS: ONDANSETRON ODT 4 MG PO PRN (11:29)
[2018-09-30] MEDS ORDERED: BISACODYL 10 MG SUPP PR PRN (11:30)
[2018-09-30] MEDS ORDERED: ONDANSETRON 2MG/ML, 2ML IVPush PRN (11:30)
[2018-09-30] MEDS ORDERED: POLYETHYLENE GLYCOL 17 GM PACKET PO PRN (11:30)
[2018-09-30] MEDS ORDERED: ENALAPRILAT 1.25 MG/ML, 2ML IVPush PRN (11:30)
[2018-09-30] MEDS ORDERED: hydrALAzine 20 MG/ML, 1ML IVPush PRN (11:30)
[2018-09-30] MEDS ORDERED: LIDODERM 5% PATCH TD PRN (11:30)
[2018-09-30] MEDS ORDERED: METOCLOPRAMIDE 5 MG/ML, 2ML IVPush PRN (11:30)
[2018-09-30] MEDS ORDERED: METOCLOPRAMIDE 5 MG/ML, 2ML ONE (11:34)
[2018-09-30] MEDS: PROMETHAZINE 25 MG/ML, 1ML IM PRN ×3 (11:37→21:32)
--- NOTE | 2018-09-30 11:40 | NUR ---
PT AMBULATED TO BR WITH STEADY GAIT. PT STATES INCREASED NAUSEA AGAIN. PT MEDICATED PER EMAR FOR N/V. PT ASSISTED IN REPOSITIONING IN BED, CALL LIGHT WITHIN REACH.
[2018-09-30] MEDS: SODIUM CHLORIDE 0.9% 1,000 ML IV SCH (12:30)
[2018-09-30] MEDS ORDERED: POTASSIUM PHOSPHATE 44 MEQ in SODIUM CHLORIDE 0.9% 500 ML IV ONE (13:30)
[2018-09-30] MEDS ORDERED: OLAN2.5T3 PO (13:37)
[2018-09-30] MEDS ORDERED: FLUO10CA7 PO (13:37)
[2018-09-30] MEDS ORDERED: CLON0.5T PO (13:37)
[2018-09-30] MEDS ORDERED: CYCL5TAB PO (13:37)
[2018-09-30] MEDS ORDERED: ENOXAPARIN 40 MG/0.4 ML SQ SCH (14:00)
[2018-09-30 15:45] LABS: ANION GAP 11 mmol/L (5-15); CALCIUM 8.2 mg/dL (8.5-10.1); CHLORIDE 96 mmol/L (98-107); CREATININE 0.57 mg/dL (0.55-1.02)
[2018-09-30 17:38] VITALS: BP 112/82
[2018-09-30 19:30] VITALS: BP 107/65
[2018-09-30] MEDS: DOCUSATE 100 MG CAPSULE PO SCH (19:41)
[2018-09-30] MEDS: ACETAMINOPHEN 325 MG TABLET PO PRN (19:41)
[2018-09-30] MEDS: FAMOTIDINE 20 MG/2 ML IVPush SCH (19:42)
[2018-09-30] MEDS ORDERED: OLANZAPINE 2.5 MG TABLET PO SCH (21:00)
[2018-09-30] MEDS ORDERED: LORazepam 0.5MG TABLET PO PRN (21:00)
[2018-09-30 22:11] VITALS: BP 107/65
[2018-10-01] MEDS: SODIUM CHLORIDE 0.9% 1,000 ML IV SCH (03:00)
[2018-10-01 03:07] VITALS: BP 110/56
[2018-10-01 04:33] LABS: ANION GAP 10 mmol/L (5-15); CALCIUM 8.3 mg/dL (8.5-10.1); CHLORIDE 100 mmol/L (98-107)
[2018-10-01 04:35] LABS: CREATININE 0.56 mg/dL (0.55-1.02)
[2018-10-01 06:13] LABS: BASOPHILS # (AUTO) 0.07 x10^3/uL (0-0.1); BASOPHILS % (AUTO) 1 % (0-1); EOSINOPHILS # (AUTO) 0.07 x10^3/uL (0-0.4); EOSINOPHILS % (AUTO) 1 % (1-7); LYMPHOCYTES # (AUTO) 2.69 x10^3/uL (1-3.4); LYMPHOCYTES % (AUTO) 33 % (22-44); MD NO; MEAN CORPUSCULAR HEMOGLOBIN 31.2 pg (27.0-34.8); MEAN CORPUSCULAR VOLUME 91.7 fL (80-100); MEAN PLATELET VOLUME 7.8 fL (7.4-10.4); MONOCYTES # (AUTO) 0.75 x10^3/uL (0.2-0.8); MONOCYTES % (AUTO) 9 % (2-9); NEUTROPHILS # (AUTO) 4.47 x10^3/uL (1.8-6.8); NEUTROPHILS % (AUTO) 56 % (42-75); PLATELET COUNT 406 x10^3/uL (130-400); RED CELL DISTRIBUTION WIDTH 13.4 % (9.6-15.2)
[2018-10-01] MEDS ORDERED: POTASSIUM CHLORIDE 40 MEQ in SODIUM CHLORIDE 0.9% 500 ML IV ONE (08:00)
[2018-10-01 08:15] VITALS: BP 104/63
[2018-10-01] MEDS ORDERED: FLUOXETINE 10 MG CAP PO SCH (09:00)
[2018-10-01] MEDS: DOCUSATE 100 MG CAPSULE PO SCH (09:12)
[2018-10-01] MEDS: FAMOTIDINE 20 MG/2 ML IVPush SCH (09:12)
[2018-10-01] MEDS: ONDANSETRON ODT 4 MG PO PRN (14:31)
[2018-10-01] MEDS: ACETAMINOPHEN 325 MG TABLET PO PRN (14:31)
== END 2018-10-01 16:14 | disposition home or self-care (01) ==
LOC: ED 07:43 → EDIP 09:52 → INTOOBSV 09:52 → 4WST 12:54
PROVIDERS: ADMIT Internal Medicine; ATTEND Internal Medicine
DX: R11.2 Nausea with vomiting, unspecified (principal); E87.6 Hypokalemia; E86.0 Dehydration; E87.1 Hypo-osmolality and hyponatremia; F12.90 Cannabis use, unspecified, uncomplicated; F17.210 Nicotine dependence, cigarettes, uncomplicated; F32.9 Major depressive disorder, single episode, unspecified; F41.1 Generalized anxiety disorder; G89.29 Other chronic pain; I10 Essential (primary) hypertension; K59.00 Constipation, unspecified; M41.9 Scoliosis, unspecified; Z80.3 Family history of malignant neoplasm of breast; Z81.8 Family history of other mental and behavioral disorders; E87.2 Acidosis
CPT/HCPCS: 36415; 71046; 80048; 82040; 83690; 83735; 84100; 84703; 85025; 87400; 93005; 96361; 96365; 96366; 96372; 96375; 96376; 99284; C9113; G0378; J1650; J2550; J2765; J3480; J3490; J7030; J7040; Q0162